=== PATIENT | male | born 1995 | race Caucasian/White ===

== ENCOUNTER 2022-04-22 09:04 | Emergency (ER) | payer SELFPAY ==
[~2022-04-22] VITALS: Ht 180.3 cm; Wt 102.1 kg
[2022-04-22 09:04] VITALS: BP 165/103
[2022-04-22 09:42] VITALS: BP 118/79
--- NOTE | 2022-04-22 09:42 | NUR ---
PATIENT BIB [place] [employer]. PATIENT EXAMINED BY DR. HIGGINS. PATIENT MEDICALLY CLEARED AND RELEASED IN CUSTODY IN STABLE CONDITION. ORIGINAL PRE-BOOK FORM GIVEN TO OFFICER [facility] #534.
== END 2022-04-22 09:42 ==
LOC: MED 09:04
DX: M25.562 Pain in left knee (principal)
CPT/HCPCS: 99283